=== PATIENT | male | born 1995 | race Two or more races ===

== ENCOUNTER 2024-09-03 18:16 | Emergency (ER) | payer BC, SELFPAY ==
[2024-09-03 18:17] VITALS: BMI 29.7
[2024-09-03 18:36] VITALS: BP 121/74; PULSE 85; RESP 16; TEMP 38.2; O2SAT 97
--- NOTE | 2024-09-03 18:39 | EDNOTE_ITS ---
<Statement entered by Cally Otero MD - 09/04/24 22:05> As co-signing physician, I was present and available for consult prn. I concur with the plan and care as documented by the midlevel provider. Upper Respiratory Inf. RME/HPI General Chief Complaint: Flu Like Symptoms Stated Complaint: FEVER, CONGESTION, CHEST PAIN WITH COUGH Time Seen by Provider: 09/03/24 18:39 Source: patient Arrival date/time: 09/03/24 18:16 29-year-old male presents emergency department complaining of fever, cough, nasal congestion, and chest pain with coughing that started this past . Mode of arrival: ambulatory Limitations: no limitations Related Data Previous Rx's ?Medication ?Instructions ?Recorded ibuprofen 600 mg tablet 600 mg PO Q8H PRN pain #20 tabs 09/03/24 penicillin V potassium 500 mg 500 mg PO BID 10 days #20 tabs 09/03/24 tablet Allergies Allergy/AdvReac Type Severity Reaction Status Date / Time No Known Allergies Allergy Verified 09/03/24 18:18 Review of Systems Review of Systems Systems Reviewed: All systems reviewed, normal except as documented Constitutional Constitutional: Reports system reviewed and no additional complaints, except as documented, Denies body ache(s), Denies chills and Reports fever(s) Eyes Eyes: Reports system reviewed and no additional complaints, except as documented and Denies change in vision ENT Ears, Nose, Mouth, and Throat: Reports system reviewed and no additional complaints, except as documented, Denies disequilibrium, Denies dizziness, Reports nasal congestion, Denies sore throat and Denies vertigo Cardiovascular Cardiovascular: Reports system reviewed and no additional complaints, except as documented, Reports chest pain and Denies dyspnea Respiratory Respiratory: Reports system reviewed and no additional complaints, except as documented, Denies chest congestion, Reports cough and Denies dyspnea Gastrointestinal Gastrointestinal: Reports system reviewed and no additional complaints, except as documented, Denies abdominal pain, Denies nausea and Denies vomiting Musculoskeletal Musculoskeletal: Reports system reviewed and no additional complaints, except as documented, Denies abnormal gait and Denies arthralgias Integumentary/Breasts Skin/Breast: Reports system reviewed and no additional complaints, except as documented, Denies erythema, Denies rash and Denies wounds Neurologic Neurologic: Reports system reviewed and no additional complaints, except as documented, Denies abnormal gait, Denies disequilibrium, Denies dizziness and Denies vertigo ED Exam General Limitations: Present no limitations General appearance: Present alert and in no apparent distress Head Head exam: Present atraumatic Eye Eye exam: Present normal appearance, PERRL and EOMI ENT ENT exam: Present normal exam, normal oropharynx and mucous membranes moist Expanded ENT Exam Mouth exam: Absent drooling or trismus Throat exam: Present tonsillar erythema; Absent tonsillomegaly, tonsillar exudate or muffled voice Neck Neck exam: Present normal inspection, full ROM and trachea midline Chest Chest inspection: Present normal inspection and symmetric chest wall rise Respiratory Respiratory exam: Present normal lung sounds bilaterally Cardiovascular Cardiovascular exam: Present regular rate, normal rhythm and normal heart sounds Abdominal Exam Abdominal exam: Present soft and normal bowel sounds Extremities Exam Extremities exam: Present normal inspection and full ROM Back Exam Back exam: Present normal inspection and full ROM Neurological Exam Neurological exam: Present alert, oriented X3 and CN II-XII intact Psychiatric Psychiatric exam: Present normal affect and normal mood Skin Skin exam: Present warm, dry, intact and normal color Course Quality Measures none Orders Category Date Time Status Bedside COVID-19 Antigen Test NOW Care 09/03/24 18:40 Completed Bedside Influenza A&B Antigen Test NOW Care 09/03/24 18:40 Completed XR chest 2V Stat Exams 09/03/24 18:40 Completed Strep A Rapid Stat Lab 09/03/24 18:41 Completed Acetaminophen Tab [Tylenol ES Tab] Med 09/03/24 18:40 Discontinued 1,000 mg PO X1 ONE Penicillin Vk [Pen Vk] Med 09/03/24 20:14 Discontinued 500 mg PO X1 ONE Vital Signs Vital signs: Vital Signs Temperature 100.8 F H 09/03/24 18:36 Pulse Rate 85 09/03/24 18:36 Respiratory Rate 16 09/03/24 18:36 Blood Pressure 121/74 09/03/24 18:36 Pulse Oximetry (%) 97 09/03/24 18:36 Oxygen Delivery Method Room Air 09/03/24 18:36 97% room air within normal limits Upper Respiratory Infection MDM Narrative MDM Narrative:: 29-year-old male presents emergency department complaining of fever, cough, nasal congestion, and chest pain with coughing that started this past . Patient appears nontoxic and hemodynamically stable. Chest x-ray was negative for any acute process. Patient strep swab positive. No trismus, no muffled voice, or respiratory distress. Patient discharged on oral antibiotics and instructed to follow-up with primary care provider and return to emergency department for any worsening symptoms or as needed. Patient data External records reviewed:: [facility] previous records Clinical information provided by:: patient Social determinants that could affect healthcare access:: none Patient has the following chronic illnesses:: Not applicable How is presenting disease/condition affected by chronic disease/condition?: no chronic disease Evaluation data The following diagnostics were reviewed and interpreted by me:: lab results and radiology exam(s) Lab and/or radiology exams considered but not ordered:: Ordered Interpretation Summary: Interpreted by me Medications / Prescriptions Medications or Prescriptions considered but not ordered:: Ordered Medication administrations:: Medication Administration History Discontinued Medications Acetaminophen (Acetaminophen 500 Mg Tablet) 1,000 mg PO X1 ONE Stop: 09/03/24 18:41 Last Admin: 09/03/24 18:59 Dose: 1,000 mg Documented By: Penicillin V Potassium (Penicillin Vk 250 Mg Tablet) 500 mg PO X1 ONE Stop: 09/03/24 20:15 Last Admin: 09/03/24 20:24 Dose: 500 mg Documented By: Given Consultations Consultation(s) initiated? (list below): No Diagnosis Upper Respiratory Differential Diagnosis: upper respiratory infection, croup, otitis media, sinusitis, viral infection, bronchitis, influenza and pharyngitis Most likely diagnosis given after review of the tests above:: Acute streptococcal pharyngitis Admission Indicated Admission indicated?: not indicated Admission Request Was there a request for admission?: No Disposition Plan Disposition Plan: Discharge Discharge Attestation Discharge Attestation: The patient and all family members were given an opportunity to ask questions and understood the discharge instructions. Discharge instructions specifically effects, indications for sooner follow up or return to the emergency department, and the expected course of current diagnosis. Patient condition: Stable Discharge Plan Plan Patient Disposition: HOME (Self Care) Disposition Comment: Stable Prescriptions/Referrals Prescriptions/Med Rec: New penicillin V potassium 500 mg tablet 500 mg PO BID 10 Days Qty: 20 0RF ibuprofen 600 mg tablet 600 mg PO Q8H PRN (Reason: pain) Qty: 20 0RF Referrals: Ester Trejo PA-C [Primary Care Provider] - In 1 week Problem List Clinical Impression: Acute streptococcal pharyngitis Patient/Caregiver Discharge Instructions Discharge Activity: activity as tolerated Education Materials: ED Pharyngitis, Strep (Confirmed) Additional Instructions: Take medication as prescribed. Take ibuprofen or Tylenol as needed for fever or pain. Follow-up with primary care provider and 2 to 3 days. Return to emergency department for any worsening symptoms or as needed. Print Language: Salvadorean Stand Alone Forms: [employer] Award Info., Work/School Release, Patient Portal Info Letter PA/CLIFF Supervising Physician PA/CLIFF Supervising Physician: Dr. Otero
--- NOTE | 2024-09-03 18:40 | XR_ITS ---
Examination: PA lateral chest 2 views Technique: Upright PA lateral chest 2 views Exam date and time: September 03, 2024 1842 hrs. Indications: Coughing today. Findings: Normal heart size. Lungs are clear. Osseous structures are intact. Impression: No active disease
[2024-09-03 18:58] LABS: Strep A Rapid Positive (Negative)
[2024-09-03 18:59] VITALS: TEMP 38.2
[2024-09-03] MEDS: ACETAMINOPHEN 500 MG TABLET 1000 MG PO (18:59)
[2024-09-03] MEDS: PENICILLIN VK 250 MG TABLET 500 MG PO (20:24)
[2024-09-03 20:28] VITALS: RESP 18
== END 2024-09-03 20:29 | disposition home or self-care (01) ==
PROVIDERS: Emergency Provider Emergency Medicine; PCP Physician Assistant
DX: J02.0 Streptococcal pharyngitis (principal)
CPT/HCPCS: 71046; 87400; 87651; 87811; 99283; A9270

== ENCOUNTER 2025-04-18 08:43 | Outpatient (RCR) | payer OTHER, SELFPAY ==
--- NOTE | 2025-04-18 09:41 | PTNOTE_ITS ---
PT OP Initial Eval Patient Information Outpatient Physical Therapy Treatment Date: 04/18/25 Visit Reasons: Pain in Left foot Medical Diagnosis: M79.672 Start of Care: 04/18/25 Date of Onset: January 2024 Smoking Status Smoking Status: Never smoker Initial Assessment Subjective: Pt is 30 yr old male who fell from 6 feet off a ladder last year c/o L foot pain and points to the medial heel. The heel hurts in the morning for the first few minutes and then the pain goes away until he sits and rests and then it hurts again to get up and walk. He is working as a tax compliance officer and the foot doesn't hurt during work. He runs for exercise about 4x a week. 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 I'm going to defer to the financial reporting advisor on this since I don't have experience with this problem. I doubt he will benefit from physical therapy since this instability will not likely change with therapy interventions. He is running frequently which is more than he would do here in therapy. Short Term and City Letter Carrier Goals Eval and D/C Treatment Plan Pt will follow up with financial reporting advisor this week and then call therapy back. Certification Dates: 04/18/25 to 05/19/25 Procedure Charges OP PT Eval Mod Complex 30 minutes: Yes
== END 2025-05-03 23:59 | disposition home or self-care (01) ==
LOC: CPTX 08:43
PROVIDERS: PCP Nurse Practitioner; Referring Provider Nurse Practitioner; Visit Provider Nurse Practitioner
DX: M79.672 Pain in left foot (principal); S93.33 Other subluxation and dislocation of foot; W11.XXXD Fall on and from ladder, subsequent encounter
CPT/HCPCS: 97162